=== PATIENT | female | born 1950 | race Caucasian/White ===

== ENCOUNTER 2017-09-27 05:51 | Inpatient (IN) | payer MEDICARE ==
--- NOTE | 2017-09-14 16:49 | HP ---
AMENDED REPORT NOW INCLUDES COSIGNER DESIGNATION - ESIGNED BEFORE ADJUSTMENT HISTORY AND PHYSICAL: DATE OF ADMISSION/SURGERY: 09/27/17 DATE OF OFFICE VISIT: 09/14/17 SURGEON: Ernestine Estrada MD * (DICTATED BY ABHIJIT CHILDS) PROCEDURE: Left total hip arthroplasty. CHIEF COMPLAINT: Left hip pain. HISTORY OF PRESENT ILLNESS: Ms. Aldridge is a 66-year-old female with continued complaints of left hip pain secondary to advanced osteoarthritis. She has failed conservative management and elected to proceed with a left total hip arthroplasty, which is scheduled for 09/27/[address] Estrada. PAST MEDICAL HISTORY: Hypertension, anxiety, osteoarthritis, and hemifacial ___ __. PAST SURGICAL HISTORY: Tubal ligation, bunionectomy, D and C, right total hip arthroplasty, hernia repair. CURRENT MEDICATIONS: 1. Metoprolol 25 mg daily. 2. Cymbalta 30 mg daily. 3. Vitamin D. 4. Calcium. 5. Magnesium. 6. Zinc. 7. Potassium. 8. Vitamin C. 9. Percocet. ALLERGIES: None. FAMILY HISTORY: Of colon cancer and osteoporosis. SOCIAL HISTORY: She is a 66-year-old female, she lives with her . She does not smoke, use drugs, or alcohol. REVIEW OF SYSTEMS: A complete 14-point review of systems was reviewed with the patient, was all negative or noncontributory. PHYSICAL EXAMINATION GENERAL: She is well developed, well nourished, in no acute distress. VITAL SIGNS: She stands 5 feet 5 inches tall, weighs 175 pounds. Her blood pressure 142/92 and her heart rate is 88. HEENT: Normocephalic, atraumatic. NECK: Supple. No palpable lymph nodes. PULMONARY: Lungs are clear to auscultation bilaterally. CARDIO: Regular rate and rhythm. Strong S1, S2. ABDOMEN: Soft, nontender, nondistended. NEUROLOGICAL: Alert and oriented x3. Cranial nerves II through XII are intact. MUSCULOSKELETAL: Left lower extremity, the skin is intact. There are no open wounds or abrasions. She walks with an antalgic gait. She has decreased internal and external rotation of the left hip. She has 2+ dorsalis pedis pulses, intact sensation, and her lower extremity muscle group strengths are intact at 5/5. ASSESSMENT AND PLAN: Ms. Aldridge is a 66-year-old female with severe left hip pain secondary to advanced osteoarthritis. She has failed conservative management and has elected to proceed with a left total hip arthroplasty, which is scheduled for 09/27/17, with Dr. Estrada. Dr. Estrada discussed the risks and benefits of the surgery at today's visit and all of her questions were answered. Coumadin and Colace were sent to her pharmacy for postoperative DVT prophylaxis. She currently has prescription for Percocet. She will follow up with Dr. Estrada in 2 weeks after the surgery. ABHIJIT CHILDS [id number]/CPS #: [id number] MTDD
[~2017-09-27 05:51] MED LIST: Acetaminophen IV 1GM/100ML * 1,000 MG/100 ML VIAL IVPB ONE; Buffered Lidocaine 0.9% SYRIN* 5 ML/SYR SYRINGE INTRADERM ONE; Gabapentin CAP(*) 300 MG PO ONE
[2017-09-27] MEDS ORDERED: Famotidine IV* 10 MG/ML 2 ML (20 mg) IV ONE (06:00)
[2017-09-27] MEDS ORDERED: Dexamethasone IV* 4 MG/ML 1 ML (4 MG) IV SLOW PU ONE (06:00)
--- OUTSIDE RECORDS SUMMARY | 2017-09-27 06:00 | XMS REPORT ---
:1950 External Reference #:[id number] Author Organization [facility] Address [address] [address] Phone [phone] Care Team Providers Name Role Phone Aguilar Bermudez MD Primary Care Physician Unavailable Payers Type Date Identification Numbers Payment Provider Subscriber Health Maintenance Policy Number: Medicare Blue o Donna Bocanegra (O) [id number] PayID: [id number] [address] [address] [place] [address] Medigap Part B Effective: 08/20/2013 Policy Number: BS Asael Aldridge [id number] Expires: 08/19/2017 PayID: [id number] [address] [address] [place] [address] Medigap Part B Expires: 08/19/2013 Policy Number: BS Asael Aldridge [id number] PayID: [id number] [address] [address] [place] [address] Problems Date Description Provider Status Onset: 09/03/2017 Localized, primary osteoarthritis of the Ernestine Estrada M.D. 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 hours as needed for pain Metoprolol / Active 25mg one daily Unknown Succinate ER 0000 Amoxicillin / Active Tablets 500mg 4 tabs by Unknown 0000 mouth 1 hour prior to dental procedures . Cymbalta / Active Caps DR 25mg 1 by mouth Unknown 0000 Part every day Vitamin D 00/ Active Unknown 0000 Calcium / Active Tablets 300-300mg Unknown Magnesium Zinc 0000 Potassium / Active Unknown 0000 Oxycodone-Acet 01/07/ Hx Tablets 5-325mg 40tabs take 1 tab Kang aminophen 2014 - PO tid as Hannah, 09/02/ needed M.D. 2017 Dilaudid 03/17/ Hx Tablets 2mg 50tabs take 1-2 Kang 2012 - tablet po Hannah, 04/09/ q 4-6 hr M.D. 2012 prn pain Bactrim DS 02/27/ Hx Tablets 800-160mg 14tabs 1 po bid Kang 2012 - for 7 days Hannah, 02/24/ M.D. 2013 Coumadin 02/26/ Hx Tablets 2.5mg 90tabs take 1-3 Kang 2012 - as Hannah, 02/24/ directed M.D. 2013 at 5pm daily Percocet 02/26/ Hx Tablets 5-325mg 50tabs 1-2 tabs Kang 2012 - po bid prn Hannah, 02/24/ pain M.D. 2013 Docusate / Hx Capsules 100mg 60caps 1 by mouth Kang Sodium 0000 - twice a Hannah, 09/02/ day as M.D. 2018 needed Sertraline HCL / Hx Tablets 50mg 1/2 tab by Unknown 0000 - mouth 09/02/ every day 2018 Vital Signs Date Vital Result Comment 09/03/2017 Height 64.5 inches 5'4.50" Weight 174.00 lb Heart Rate 88 /min BP Systolic 142 mmHg BP Diastolic 92 mmHg BMI (Body Mass Index) 29.4 kg/m2 02/05/2015 Height 64 inches 5'4" Weight 170.00 lb Pain Level 2 BMI (Body Mass Index) 29.2 kg/m2 01/22/2015 Height 64 inches 5'4" Weight 170.00 lb Pain Level 6 at end of day after working all day BMI (Body Mass Index) 29.2 kg/m2 01/12/2015 Height 64 inches 5'4" Weight 170.00 lb Heart Rate 75 /min BP Systolic Sitting 149 mmHg BP Diastolic Sitting 97 mmHg Pain Level 6 various depending on movement BMI (Body Mass Index) 29.2 kg/m2 02/25/2014 Height 64 inches 5'4" Heart Rate 78 /min BP Systolic 128 mmHg BP Diastolic 97 mmHg Results Test Date Test Result H/L Range Note Laboratory test finding 03/24/2013 Inr 1.85 High 0.87-0.97 Urinalysis 02/26/2013 Urine Color Yellow Urine Appearance Cloudy Urine Specific [place] 1.022 1.010-1.030 Urine Esterase Trace Negative Urine Nitrate Negative Negative Urine Urobilinogen Negative E.U./dL Negative Urine Protein Negative mg/dL Negative Urine pH 7.0 5-9 Urine Blood Negative Negative Urine Ketones Negative mg/dL Negative Urine Bilirubin Negative Negative Urine Glucose Negative mg/dL Negative Urine Microscopic 02/26/2013 Urine WBC 1+ (<10 /hpf) None Seen Urine Mucus Present /lpf Absent Urine Epithelial Cells 1+ Urothelial /hpf None Seen Bacteria Urine 2+ None Seen Crystals Urine Amorphous /lpf None Seen Type & Screen 02/26/2013 Patient Blood Type A Positive Antibody Screen NEGATIVE Procedures Date CPT Code Description Status 01/12/2015 65572 Closed Treatment Radial Head Or Neck FX W/O Completed Manipulation 02/25/2014 98574 Rad Exam; Hip Unilat Completed 04/09/2013 87005 Rad Exam; Hip Unilat Completed 04/09/2013 18020 Rad Exam; Pelvis Completed 03/10/2013 37430 THR Total Hip Replacement Completed 03/10/2013 53486 THR Total Hip Replacement Completed Encounters Type Date Location Provider CPT E/M Dx Office Visit 09/03/2017 [facility] Ernestine Estrada M.D. 62109 M25.552 2:00p [facility] M16.12 Office Visit 01/12/2015 2:00p [facility] 57874 813.06 Maryana Teresa 873.42 V58.32 Office Visit 02/25/2014 10:45a [facility] M.D. 21646 715.95 Of CDionisio Office Visit 02/26/2013 1:00p [facility] [place] Quinn 67977 715.95 Of [facility].AMarvin Witt Office Visit 01/15/2013 1:00p [facility] M.D. 97936 715.95 [facility] Plan of Care Future Appointment(s):09/27/2017 2:30 pm - Ernestine Estrada M.D. at [facility]09/14/2017 9:45 am - Ernestine Estrada M.D. at [facility]09/03/2017 - Ernestine Estrada M.D.M25.552 Pain in left hipNew Medication:Oxycodone-Acetaminophen 5-325 mgNew Xrays:Hip Left 2 Views And Pelvis 38355 - 39880Cunoih up:Follow up: 7-10 days before rzrpcqgZ44.12 Unilateral primary osteoarthritis, left hip
--- OUTSIDE RECORDS SUMMARY | 2017-09-27 06:00 | XMS REPORT ---
:1950 External Reference #:[id number] Author Organization [facility] Address [address] [address] Phone [phone] Care Team Providers Name Role Phone Aguilar Bermudez MD Primary Care Physician Unavailable Payers Type Date Identification Numbers Payment Provider Subscriber Health Maintenance Policy Number: Medicare Blue Ppo Donna Bocanegra (O) [id number] PayID: [id number] [address] [address] [place] [address] Medigap Part B Effective: 08/20/2013 Policy Number: BS Asael Aldridge [id number] Expires: 08/19/2017 PayID: [id number] [address] [address] [place] [address] Medigap Part B Expires: 08/19/2013 Policy Number: BS Asael Abhay Aldridge [id number] PayID: [id number] [address] [address] [place] [address] Problems Date Description Provider Status Onset: 09/03/2017 Localized, primary osteoarthritis of the Ernestine Brii Estrada Active pelvic region and thigh Family History Date Family Member(s) Problem(s) Comments General Cancer Social History Type Date Description Comments 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 at night as directed Stool 09/14/ Active Capsules 100mg 90caps 1 by mouth Ernestine Softener 2018 2-3 times Sean, daily while M.D. on narcotic pain medication Oxycodone-Johnny 09/03/ Active Tablets 5-325mg 90tabs 1-2 tabs by M25.552 Ernestine taminophen 2018 mouth every Sean, 12 hours as M.D. needed for pain Metoprolol / Active 25mg one daily Unknown Succinate ER 0000 Amoxicillin / Active Tablets 500mg 4 tabs by Unknown 0000 mouth 1 hour prior to dental procedures. Cymbalta / Active Caps DR 25mg 1 by mouth Unknown 0000 Part every day Vitamin D / Active Unknown 0000 Calcium / Active Tablets 300-300mg Unknown Magnesium 0000 Zinc Potassium / Active Unknown 0000 Oxycodone-Johnny 01/07/ Hx Tablets 5-325mg 40tabs take 1 tab Kang felix 2014 - PO tid as Hannah 09/02/ needed M.D. 2018 Dilaudid 03/17/ Hx Tablets 2mg 50tabs take 1-2 Kang 2012 - tablet po q Hannah, 04/09/ 4-6 hr prn M.D. 2012 pain Bactrim DS 02/27/ Hx Tablets 800-160mg 14tabs 1 po bid for Kang 2012 - 7 days Hannah 02/24/ M.D. 2013 Coumadin 02/26/ Hx Tablets 2.5mg 90tabs take 1-3 as Kang 2012 - directed at Hannah, 02/24/ 5pm daily M.D. 2014 Percocet 02/26/ Hx Tablets 5-325mg 50tabs 1-2 tabs po Kang 2012 - bid prn pain Hannah, 02/24/ M.D. 2013 Docusate / Hx Capsules 100mg 60caps 1 by mouth Kang Sodium 0000 - twice a day Hannah 09/02/ as needed M.D. 2018 Sertraline / Hx Tablets 50mg 1/2 tab by Unknown HCL 0000 - mouth every 09/02/ day 2018 Vital Signs Date Vital Result Comment 09/14/2017 Height 64.5 inches 5'4.50" Weight 177.00 lb BP Systolic 132 mmHg BP Diastolic 84 mmHg Respiratory Rate 16 /min Pain Level 6 BMI (Body Mass Index) 29.9 kg/m2 09/03/2017 Height 64.5 inches 5'4.50" Weight 174.00 [...] Color Yellow Urine Appearance Cloudy Urine Specific [place] 1.022 1.010-1.030 Urine Esterase Trace Negative Urine [...] Procedures Date CPT Code Description Status 01/12/2015 85957 Closed Treatment Radial Head Or Neck FX W/O Completed Manipulation 02/25/2014 78199 Rad Exam; Hip Unilat Completed 04/09/2013 54744 Rad Exam; Hip Unilat Completed 04/09/2013 15936 Rad Exam; Pelvis Completed 03/10/2013 01881 THR Total Hip Replacement Completed 03/10/2013 57432 THR Total Hip Replacement Completed Encounters Type Date Location Provider CPT E/M Dx Office Visit 09/03/2017 [facility] Ernestine Estrada M.D. 71121 M25.552 2:00p [facility] M16.12 Office Visit 01/12/2015 2:00p [facility] [place], 51356 813.06 Maryana Teresa 873.42 V58.32 Office Visit 02/25/2014 10:45a [facility] M.D. 82931 715.95 Of Chris.MSaleem Office Visit 02/26/2013 1:00p [facility] [place] 85948 715.95 Of C.MMarvin Martinez Office Visit 01/15/2013 1:00p [facility] M.D. 49318 715.95 Of C.MSaleem Plan of Care Future Appointment(s):10/10/2017 11:00 am - ABHIJIT Barron at [facility]09/27/2017 12:00 pm - Ernestine Estrada M.D. at [facility]09/14/2017 - Ernestine Estrada M.D.M25.552 Pain in left hipFollow up:Follow up: 2 weeks after qyaqrcnC25.12 Unilateral primary osteoarthritis, left hip
[2017-09-27] MEDS ORDERED: Acetaminophen IV 1GM/100ML * 100 ML ONE (06:10)
[2017-09-27] MEDS ORDERED: Gabapentin CAP(*) 300 MG ONE (06:11)
[2017-09-27] MEDS ORDERED: Famotidine IV* 10 MG/ML 2 ML (20 mg) ONE (06:11)
[2017-09-27] MEDS ORDERED: Dexamethasone IV* 4 MG/ML 1 ML (4 MG) ONE (06:11)
[2017-09-27] MEDS ORDERED: ceFAZolin 2 GM PREMIX (*) 2 GM/50 ML BAG IVPB ONE (06:11)
[2017-09-27] MEDS ORDERED: Phenylephrine INJ* 10 MG/ML 1 ML VIAL (10 MG) ONE (07:18)
[2017-09-27] MEDS ORDERED: Ondansetron INJ* 2 MG/ML VIAL ONE (07:23)
[2017-09-27] MEDS ORDERED: Propofol* 10 MG/ML 20 ML BTL IV PUSH ONE (07:23)
[2017-09-27] MEDS ORDERED: Midazolam* 1 MG/ML 10 ML VIAL (10 MG) ONE (07:23)
[2017-09-27] MEDS ORDERED: EPHEDrine (Pressors)* 50 MG/ML VIAL ONE (07:23)
[2017-09-27] MEDS ORDERED: KETAMINE HCL* 50 MG/ML 10 ML VIAL ONE (07:24)
[2017-09-27] MEDS ORDERED: Bupivacaine 0.5% SDV PF* 10-30ML VIAL ONE (07:31)
[2017-09-27] MEDS ORDERED: fentaNYL* 50 MCG/ML 2 ML VIAL (100 MCG VIAL) ONE ×3 (07:50→10:43)
[2017-09-27] MEDS ORDERED: Ketorolac INJ* 30 MG/ML 1 ML VIAL ONE (08:16)
[2017-09-27] MEDS ORDERED: Ondansetron INJ* 2 MG/ML VIAL IV PRN ×2 (08:21→09:11)
[2017-09-27] MEDS ORDERED: Naloxone* 0.4 MG/ML 1 ML VIAL IV PRN (08:21)
[2017-09-27] MEDS ORDERED: DiMENhydriNATE IV* 50 MG/ML VIAL IV PUSH PRN (08:21)
[2017-09-27] MEDS ORDERED: oxyCODONE/Acetamin 5/325 MG* TAB PO PRN (09:11)
[2017-09-27] MEDS ORDERED: Cyclobenzaprine TAB* 10 MG PO PRN (09:11)
[2017-09-27] MEDS ORDERED: Ondansetron TAB* 4 MG PO PRN (09:11)
[2017-09-27] MEDS ORDERED: diPHENhydraMINE IV* 50 MG/ML 1 ml VIAL (BENADRYL) IV PRN (09:11)
[2017-09-27] MEDS ORDERED: Bisacodyl SUPP* 10 MG SUPP PR PRN (09:11)
[2017-09-27] MEDS ORDERED: Polyethylene Glycol 3350* 17 GM PACKET PO PRN (09:11)
[2017-09-27] MEDS ORDERED: Magnesium Hydroxide LIQ* 30 ML UDC PO PRN (09:11)
[2017-09-27] MEDS ORDERED: Acetaminophen TAB* 325 MG PO PRN (09:11)
--- NOTE | 2017-09-27 09:42 | RAD ---
Indication: LEFT total hip replacement. Comparison: September 03, 2017 Technique: Crosstable lateral RIGHT lateral decubitus AP pelvis and LEFT hip Report: Prosthetic LEFT acetabular component in place. Prosthetic LEFT femur test fit/reamer device in place. No fracture evident. Surrounding soft tissue edema and gas. Pre-existing RIGHT total hip prosthesis noted. IMPRESSION: Intraoperative control film for LEFT hip replacement.
[2017-09-27] MEDS ORDERED: HYDROmorphone INJ* 2 MG/ML CARPUJECT SYRINGE ONE (10:30)
[2017-09-27] MEDS: fentaNYL* 50 MCG/ML 2 ML VIAL (100 MCG VIAL) IV PRN ×4 (10:31→11:03)
[2017-09-27] MEDS: HYDROmorphone INJ* 1 MG/ML CARPUJECT SYRINGE IV PRN ×5 (10:33→11:27)
[2017-09-27] MEDS ORDERED: oxyCODONE TAB* 5 MG TAB ONE (11:55)
[2017-09-27] MEDS ORDERED: Cyclobenzaprine TAB* 10 MG ONE (11:55)
[2017-09-27] MEDS: oxyCODONE TAB* 5 MG TAB PO PRN ×2 (11:57→16:40)
[2017-09-27] MEDS: Morphine INJ* 2 MG/ML 1 ML CARPUJECT IV PRN ×2 (12:26→18:08)
--- NOTE | 2017-09-27 12:35 | RAD ---
INDICATION: Status post total left hip replacement surgery. COMPARISON: Comparison is made with a prior intraoperative exam of the same date. TECHNIQUE: An AP view of the pelvis and AP and lateral films of the left hip were obtained. FINDINGS: The patient is status post total left hip replacement surgery. The bones and prostheses are in normal alignment. There is a small amount of air within the lateral soft tissues consistent with the patient's surgery. The patient is also status post remote total right hip replacement surgery. IMPRESSION: STATUS POST TOTAL LEFT HIP REPLACEMENT SURGERY. CPT II Codes: 6045F
[2017-09-27] MEDS: ceFAZolin 1 GM in Dextrose (*) 1 GM/50 ML BAG IVPB SCH (16:05)
[2017-09-27] MEDS ORDERED: Warfarin TAB(*) 6 MG PO ONE (17:00)
--- NOTE | 2017-09-27 20:51 | CONS ---
[facility] MEDICINE CONSULTATION REPORT: DATE OF CONSULT: 09/27/17 ATTENDING PHYSICIAN: Ernestine Estrada MD CONSULTING PHYSICIAN: Suzanne Ann MD REASON FOR CONSULT: Hypertension. HISTORY OF PRESENT ILLNESS: Ms. Aldridge is a 66-year-old female with continued complaints of left hip pain secondary to advanced osteoarthritis. She failed conservative management as an outpatient and elected to proceed with a left total hip arthroplasty, which she had completed today by Dr. Estrada. We were asked to consult due to her hypertension. PAST MEDICAL HISTORY: 1. Hypertension. 2. Anxiety. 3. Osteoarthritis. PAST SURGICAL HISTORY: 1. Tubal ligation. 2. D and C. 3. Hernia repair. 4. Right total hip arthroplasty. CURRENT MEDICATIONS: 1. Metoprolol 25 mg p.o. daily. 2. Cymbalta 30 mg daily. 3. Vitamin D. 4. Calcium. 5. Magnesium. 6. Zinc. 7. Potassium. 8. Vitamin C. 9. Percocet. ALLERGIES: She has an allergy to; 1. SULFA ANTIBIOTICS. 2. MORPHINE. 3. GADOLINIUM. 4. IODINATED DIAGNOSTIC AGENTS. FAMILY HISTORY: Mother with a history of colon cancer and osteoporosis and macular degeneration. Father with a history of hypertension. SOCIAL HISTORY: The patient is a 66-year-old female who lives with her . She does not smoke, does not use drugs or alcohol. Surrogate decision maker is her , Abhay, his phone number is [phone]. REVIEW OF SYSTEMS: General: She has no fevers, chills, or unintended weight loss. Cardiac: No chest pain or edema. Respiratory: No cough or congestion. No shortness of breath. GI: Denies nausea, vomiting, or diarrhea. : Denies any gross hematuria or dysuria. Neuro: Denies any focal weaknesses or sensory loss. Eyes: No visual complaints. ENT: No dysphagia. Musculoskeletal : No arthralgias or myalgias. Skin: No rashes or lesions. Psych: Denies any depression or anxiety at this time. PHYSICAL EXAM: Vital Signs: Temperature 96.8, pulse 77, respirations are 16, O2 saturation is 100% on 3 L nasal cannula, blood pressure was 115/68. General : Ms. Aldridge is lying in bed. She complains of left hip incisional pain with stinging. Neuro: She is alert and oriented x3. She is able to move all extremities. There is no focal neuro deficits. HEENT: Extraocular movements are intact. Heart: S1, S2. No murmurs, rubs, or gallops. She is in regular rhythm. Lungs: Clear to auscultation bilaterally. No accessory muscle use. There is good aeration. There is no wheezes or rhonchi. Abdomen: Soft and nontender. Bowel sounds are positive x4. Extremities: She is able to move all extremities. There is no cyanosis or edema. Pedal pulses are +2 bilaterally. Skin: She has a dressing that is dry and intact to her left hip. LABORATORY DATA: Preoperatively. IMPRESSION AND PLAN: Ms. Aldridge is a 66-year-old female with medical history consistent for hypertension, anxiety, and osteoarthritis who presented to the hospital today for a planned left total hip arthroplasty. In the immediate postoperative period, she has complaints of mild left hip pain and stinging at the incision. We were asked to consult due to her hypertension. Our recommendation is as follows; 1. Status post left total hip arthroplasty, management per Orthopedics. 2. Anxiety. Continue her Cymbalta 30 mg p.o. daily and supportive care. 3. Hypertension. We will continue on her metoprolol 25 mg p.o. daily with hold parameters for heart rate less than 60 or blood pressure less than 110. DVT prophylaxis per Orthopedics. 4. Code status. She is a full code. TIME SPENT: Approximately 45 minutes was spent on this consultation of this patient, more than half of the time was spent with the patient at the bedside reviewing the events leading thus far to her hospitalization, performing physical exam, and reviewing my plan of care. Thank you for this consultation. We will sign off at this point and follow up as needed. AMRIT WOLF, SVETA [id number]/CPS #: [id number] MIRANDA
[2017-09-27] MEDS ORDERED: Metoprolol Succinate XL TAB* 25 MG PO SCH (21:00)
[2017-09-27] MEDS: Metoprolol Succinate XL TAB* 25 MG PO SCH (21:09)
[2017-09-27] MEDS: oxyCODONE/Acetamin 5/325 MG* TAB PO PRN (21:17)
[2017-09-27] MEDS: Docusate CAP* 100 MG PO SCH (21:17)
[2017-09-27] MEDS: Magnesium Hydroxide LIQ* 30 ML UDC PO SCH (21:17)
[2017-09-28] MEDS: ceFAZolin 1 GM in Dextrose (*) 1 GM/50 ML BAG IVPB SCH ×2 (00:58→08:27)
[2017-09-28] MEDS: oxyCODONE/Acetamin 5/325 MG* TAB PO PRN ×2 (05:59→10:04)
[2017-09-28 06:12] LABS: Hematocrit 26 % (35-47); Mean Platelet Volume 7 um3 (7.4-10.4); Platelet Count 314 10^3/ul (150-450)
[2017-09-28 06:23] LABS: INR 1.25 (0.77-1.02)
[2017-09-28 06:32] LABS: EGFR Non-African American 126.7 (>60)
[2017-09-28] MEDS: DULoxetine DR CAP* 30 MG CAP.DR PO SCH (08:27)
[2017-09-28] MEDS: Docusate CAP* 100 MG PO SCH ×2 (08:27→22:03)
[2017-09-28] MEDS: oxyCODONE TAB* 5 MG TAB PO PRN ×3 (08:27→16:44)
[2017-09-28] MEDS: Magnesium Hydroxide LIQ* 30 ML UDC PO SCH ×2 (08:27→22:03)
--- NOTE | 2017-09-28 08:51 | PN ---
Progress Note - Progress Note Date of Service: 09/28/17 SOAP: Subjective: 66 y/o female s/p L SOTERO by Dr. Estrada, 09/27/2017. C/O increased pain, not controlled by pain meds. Tearful. Denies SOB, chest pain VSS, afebrile overnight. Objective: General- Well appearing, NAD, AO MSK- Dressing intact, no induration, erythema noted, + DF/PF, PT 2+, neg homans SITLT b/l les Vital Signs Temp 98.9 F 09/28/17 08:25 Pulse 87 09/28/17 08:25 Resp 16 09/28/17 08:27 BP 96/43 09/28/17 08:25 Pulse Ox 94 09/28/17 08:25 Intake & Output 09/27/17 09/28/17 09/28/17 18:59 06:59 18:59 Intake Total 2741 2065 Output Total 675 850 Balance 2066 1215 Intake: IV Fluids 2000 775 ABX - CEFAZOLIN 60 LR 2000 715 IVPB 271 LR 271 Oral 470 1290 Output: Gal[place] 675 850 Other: # Bowel Movements 0 0 Assessment: Stable 66 y/o female s/p L SOTERO by Dr. Figueroa, 09/27/2017. Plan: - DVT prophylaxis- lovenox, coumadin. 6mg coumadin tonight. - Continue PT/ OT - Follow up with Dr. Estrada 10-14 days - Possible rehab placement Active Medications Generic Name Dose Route Start Last Admin Trade Name Freq PRN Reason Stop Dose Admin Acetaminophen 650 mg 09/27/17 09:11 Tylenol Tab* PO Q4H PRN PAIN OR TEMPERATURE Bisacodyl 10 mg 09/27/17 09:11 Dulcolax Supp* NC DAILY PRN constipation Cyclobenzaprine HCl 10 mg 09/27/17 09:11 09/27/17 11:56 Flexeril Tab* PO 10 mg TID PRN Administration SPASMS Diphenhydramine HCl 12.5 mg 09/27/17 09:11 Benadryl Iv* IV Q6H PRN PRURITIS Docusate Sodium 100 mg 09/27/17 21:00 09/28/17 08:27 Colace Cap* PO 100 mg BID SUZANNE Administration Duloxetine HCl 30 mg 09/28/17 09:00 09/28/17 08:27 Cymbalta Cap* PO 30 mg QAM SUZANNE Administration Enoxaparin Sodium 30 mg 09/28/17 12:00 Lovenox(*) SUBCUT Q24H SUZANNE Lactated Ringer's 1,000 mls @ 100 mls/hr 09/27/17 10:00 09/27/17 23:30 Lactated Ringers 1000 Ml Bag* IV 100 mls/hr PER RATE SUZANNE Administration Lactulose 30 ml 09/27/17 09:11 Lactulose* PO Q6H PRN constipation Magnesium Hydroxide 30 ml 09/27/17 21:00 09/28/17 08:27 Milk Of Magnesia Liq* PO 30 ml BID SUZANNE Administration Magnesium Hydroxide 30 ml 09/27/17 09:11 Milk Of Magnesia Liq* PO Q6H PRN constipation Metoprolol Succinate 25 mg 09/27/17 21:00 09/27/17 21:09 Toprol Xl Tab* PO Not Given BEDTIME SUZANNE Morphine Sulfate 2 mg 09/27/17 09:11 09/27/17 18:08 Morphine Inj (Syringe)* IV 2 mg Q2H PRN Administration PAIN Ondansetron HCl 4 mg 09/27/17 09:11 Zofran Inj* IV Q6H PRN nausea Ondansetron HCl 4 mg 09/27/17 09:11 Zofran Tab* PO Q6H PRN NAUSEA Oxycodone HCl 10 mg 09/27/17 09:11 09/28/17 08:27 Roxycodone Tab* PO 10 mg Q4H PRN Administration SEVERE PAIN Oxycodone/Acetaminophen 2 tab 09/27/17 09:11 09/28/17 05:59 Percocet 5/325 Tab* PO 2 tab Q4H PRN Administration PAIN Oxycodone/Acetaminophen 1 tab 09/27/17 09:11 Percocet 5/325 Tab* PO Q4H PRN PAIN Pharmacy Profile Note 1 note 09/27/17 17:00 09/27/17 16:07 Coumadin Daily Reminder* FOLLOW UP 1 note 1700 SUZANNE Administration Polyethylene Glycol/Electrolytes 17 gm 09/27/17 09:11 Miralax* PO DAILY PRN Constipation Warfarin Sodium 4 mg 09/28/17 17:00 Coumadin Tab(*) PO 09/28/17 17:01 ONCE@1700 ONE Protocol
[2017-09-28] MEDS ORDERED: Acetaminophen TAB* 325 MG PO SCH (11:00)
[2017-09-28] MEDS ORDERED: Enoxaparin(*) 30 MG/0.3 ML SYR SUBCUT SCH (12:00)
[2017-09-28] MEDS: Acetaminophen TAB* 325 MG PO SCH ×2 (12:18→20:17)
[2017-09-28] MEDS: oxyCODONE SR TAB(*) 10 MG TAB.SR PO SCH ×2 (12:19→22:02)
--- NOTE | 2017-09-28 13:47 | OP ---
OPERATIVE REPORT: DATE OF OPERATION: 09/27/17 DATE OF : 52 SURGEON: Ernestine Estrada MD WIREWORKER SUPERVISOR: ABHIJIT Hardy Mr. Ewing did help throughout the procedure with preparation of the leg, wound retraction, manipulat ion of the hip, and wound closure. ANESTHESIOLOGIST: Dr. Castro. ANESTHESIA: Spinal. PRE-OP DIAGNOSIS: Severe end-stage degenerative osteoarthritis of the left hip joint. POST-OP DIAGNOSIS: Severe end-stage degenerative osteoarthritis of the left hip joint. OPERATIVE PROCEDURE: Left total hip arthroplasty. HARDWARE USED: Ramiro uncemented total hip arthroplasty hardware. For the cup, a Trident 52E hemis pherical shell. For the stem, an Accolade TMZF size 3 with a 132- degree neck angle. For the liner, a Trident X3 0-degree polyethylene insert 36E and for the head, a Biolox delta ceramic V40 femoral h ead 36 +0. COMPLICATIONS: None. ESTIMATED BLOOD LOSS: 350 cc. SPECIMEN: Femoral head and acetabular reaming sent to Pathology. BRIEF HISTORY/INDICATION: Ms. Aldridge is a 66-year-old female with years of increasingly severe left hip pain. She failed conservative treatment with anti- inflammatories, pain medications, ambulatory assistive devices and physical therapy. Her x-rays showed [id number] arthritis. She elected to u ndergo a left total hip arthroplasty due to continued pain and decreased quality of life. Informed co nsent was obtained from the patient. She understood the risks of surgery included, but were not limi nayely to, bleeding, infection, damage to nearby structures, continued pain, need for further surgery, i ntraoperative fracture, nerve palsy, hardware failure or loosening, dislocation, leg length discrepan cy, stroke, heart attack, blood clot, and . She wished to proceed. INTRAOPERATIVE FINDINGS: Intraoperatively, the patient was noted to have severe end-stage arthritis with complete loss of cartilage along the femoral head and acetabulum. Significant inferior osteophy te formation around the acetabulum. DESCRIPTION OF PROCEDURE: Ms. Aldridge is a 66-year-old female who was identified in the preanesthesi a unit. Her left lower extremity was marked as the correct operative side. Informed consent was sig ani and placed in the chart. The patient was taken to the operating room and placed under spinal ane sthesia. A Galvan catheter was placed. The patient was placed in the right lateral decubitus positio n on the peg board. All bony prominences were well padded. The left lower extremity was prepped and draped in the usual sterile fashion. Preop time-out was made to correctly identify the patient's si de and site. Appropriate perioperative antibiotics were given within 1 hour of incision. A 12-cm posterior hip incision was made with a 10 blade and carried down to the lateral fascial layer . The lateral fascial layer was incised in line with a skin incision. A Charnley retractor was plac ed. The piriformis and conjoint tendons were elevated off the posterolateral femur and tagged with # 5 Ethibonds. Electrocautery was then used to make a standard posterolateral capsular flap without medina ctrocautery and this was also tagged with #5 Ethibonds. The hip was carefully dislocated. The lesse r troch to center of the femoral head measured 55 mm. Oscillating saw was used to make the appropria te femoral neck cut. The femur was carefully removed. The femur was retracted anteriorly. After appropriate placement of retractors, the acetabulum was we ll visualized. Long-handled knife was used to sharply remove any remaining labrum from the acetabula r rim. The acetabulum was sequentially reamed up to a size 51. Good bleeding subchondral bone bed w as obtained. A 51 trial had excellent fit. Some small subchondral cysts were noted and were cleared of any cystic debris. Femoral head and a bone autograft was collected and packed into the cystic re gions. Final implant chosen was a Trident 52E hemispherical shell. This was impacted into the aceta bulum without difficulty. The cup was stable with appropriate anteversion and abduction angle. A Tr ident X3 0-degree liner 36E was chosen. This was impacted into the acetabular cup without difficulty . Stability of the liner was checked and rechecked and noted to be stable. Next, attention was turned to preparation of the femur. A canal finder was used to enter the proxima l femur. The femur was sequentially broached up to a size 3. The size 3 broach had excellent fit an d appropriate anteversion. A 132-degree neck with a 36 +0 head trial was placed. Lesser troch to th e center of the femoral head measured 55 mm. The hip was reduced and taken through a range of motion . The hip was stable in all positions. There was good soft tissue tension and leg length. The hip w as carefully dislocated. All trials were removed. Final implant chosen was an Accolade TMZF size 3 with a 132-degree neck. This was impacted into the femoral canal without difficulty. There was excellent stability and anteversion. A Biolox delta cer amic V40 36 +0 femoral head was chosen. This was impacted on to the femoral neck. The hip was reduced and taken through a range of motion. The hip was stable in all positions. There was appropriate soft tissue tension and leg lengths. The hip was copiously irrigated with sterile s stephania. Previously tagged capsule and tendons were reapproximated to the posterolateral femur through 2 trochanteric drill holes. The lateral fascial layer was closed using interrupted #1 Vicryls. The rest of the incision was closed in a layered fashion using 0 and 2-0 Vicryls. The skin was closed us ing running 3-0 Monocryl and Dermabond. Sterile Adaptic, 4x4s, and paper tape were used to cover the incision. The patient's anesthesia was reversed without difficulty. She was taken to the PACU in stable condition. Intended weightbearing will be weightbearing as tolerated. Intended DVT prophylaxis will be Coumadin with a Lovenox bridge. [id number]/[facility] #: [id number]
[2017-09-28] MEDS ORDERED: Warfarin TAB(*) 4 MG PO ONE (17:00)
[2017-09-28] MEDS: Metoprolol Succinate XL TAB* 25 MG PO SCH (22:03)
[2017-09-29] MEDS: Acetaminophen TAB* 325 MG PO SCH ×3 (03:55→19:51)
[2017-09-29 05:44] LABS: Hematocrit 25 % (35-47); Hemoglobin 8.5 g/dl (12.0-16.0); Mean Platelet Volume 8 um3 (7.4-10.4); Platelet Count 301 10^3/ul (150-450)
[2017-09-29 06:01] LABS: INR 2.29 (0.77-1.02)
[2017-09-29] MEDS: Magnesium Hydroxide LIQ* 30 ML UDC PO SCH ×2 (09:13→19:51)
[2017-09-29] MEDS: oxyCODONE SR TAB(*) 10 MG TAB.SR PO SCH ×2 (09:13→19:52)
[2017-09-29] MEDS: DULoxetine DR CAP* 30 MG CAP.DR PO SCH (09:13)
[2017-09-29] MEDS: Docusate CAP* 100 MG PO SCH ×2 (09:13→19:51)
[2017-09-29 09:44] LABS: Mean Corpuscular HGB Conc 34 g/dl (31-36); Mean Corpuscular Hemoglobin 31 pg (27-31); Mean Corpuscular Volume 92 fL (80-97); Red Blood Count 2.79 10^6/ul (4.0-5.4); Red Cell Distribution Width 14 % (10.5-15)
--- NOTE | 2017-09-29 10:06 | PN ---
Progress Note - Progress Note Date of Service: 09/29/17 SOAP: Subjective: 66 y/o female s/p L SOTERO by Dr. Estrada. Patient feeling better with pain control, would like more pain medication. c/d coughing, congestion. VSS, febrile overnight to 101. Objective: General- Well appearing, NAD, AO MSK- DF/PF 2+ b/l, PT 2+, negative homans sign. Surgical dressing removed, i c/ d/i, mild resolving ecchymosis around incision, mild induration at distal portion, no erythema/ warmth. Vital Signs Temp 99.5 F 09/29/17 07:45 Pulse 79 09/29/17 07:45 Resp 16 09/29/17 09:13 BP 118/58 09/29/17 07:45 Pulse Ox 92 09/29/17 07:45 Intake & Output 09/28/17 09/29/17 09/29/17 18:59 06:59 18:59 Intake Total 2417 690 Output Total 0 Balance 2417 690 Intake: IV Fluids 1647 LR 1647 IVPB 100 ABX - CEFAZOLIN 100 Oral 670 690 Output: Urine 0 Other: Estimated Void Small Medium # Bowel Movements 1 Estimated Stool Amount Medium Medium # Voids 1 Assessment: Stable 66 y/o female s/p L SOTERO by Dr. Estrada Plan: - DVT prophylaxis- lovenox, coumadin 1mg tonight. - Continue PT/ OT - Follow up with Dr. Estrada within 10-14 days - H&H Stable - post-op IV ABX - completed. - Febrile overnight- 101F- CXR due to cough, congestion, UA ordered. - Possible D/c tomorrow Active Medications Generic Name Dose Route Start Last Admin Trade Name Freq PRN Reason Stop Dose Admin Acetaminophen 650 mg 09/28/17 12:00 09/29/17 03:55 Tylenol Tab* PO 650 mg 0400,1200,2000 SUZANNE Administration Bisacodyl 10 mg 09/27/17 09:11 Dulcolax Supp* MA DAILY PRN constipation Cyclobenzaprine HCl 10 mg 09/27/17 09:11 09/27/17 11:56 Flexeril Tab* PO 10 mg TID PRN Administration SPASMS Diphenhydramine HCl 12.5 mg 09/27/17 09:11 Benadryl Iv* IV Q6H PRN PRURITIS Docusate Sodium 100 mg 09/27/17 21:00 09/29/17 09:13 Colace Cap* PO 100 mg BID SUZANNE Administration Duloxetine HCl 30 mg 09/28/17 09:00 09/29/17 09:13 Cymbalta Cap* PO 30 mg QAM SUZANNE Administration Lactated Ringer's 1,000 mls @ 100 mls/hr 09/27/17 10:00 09/28/17 10:04 Lactated Ringers 1000 Ml Bag* IV 100 mls/hr PER RATE SUZANNE Administration Lactulose 30 ml 09/27/17 09:11 Lactulose* PO Q6H PRN constipation Magnesium Hydroxide 30 ml 09/27/17 21:00 09/29/17 09:13 Milk Of Magnesia Liq* PO Not Given BID SUZANNE Magnesium Hydroxide 30 ml 09/27/17 09:11 Milk Of Magnesia Liq* PO Q6H PRN constipation Metoprolol Succinate 25 mg 09/27/17 21:00 09/28/17 22:03 Toprol Xl Tab* PO 25 mg BEDTIME SUZANNE Administration Morphine Sulfate 2 mg 09/27/17 09:11 09/27/17 18:08 Morphine Inj (Syringe)* IV 2 mg Q2H PRN Administration PAIN Ondansetron HCl 4 mg 09/27/17 09:11 Zofran Inj* IV Q6H PRN nausea Ondansetron HCl 4 mg 09/27/17 09:11 Zofran Tab* PO Q6H PRN NAUSEA Oxycodone HCl 10 mg 09/27/17 09:11 09/28/17 16:44 Roxycodone Tab* PO 10 mg Q4H PRN Administration SEVERE PAIN Oxycodone HCl 10 mg 09/28/17 11:00 09/29/17 09:13 Oxycontin(*) PO 10 mg Q12HR SUZANNE Administration Oxycodone/Acetaminophen 1 tab 09/27/17 09:11 Percocet 5/325 Tab* PO Q4H PRN PAIN Pharmacy Profile Note 1 note 09/27/17 17:00 09/28/17 16:45 Coumadin Daily Reminder* FOLLOW UP 1 note 1700 SUZANNE Administration Polyethylene Glycol/Electrolytes 17 gm 09/27/17 09:11 Miralax* PO DAILY PRN Constipation Warfarin Sodium 1 mg 09/29/17 17:00 Coumadin Tab(*) PO 09/29/17 17:01 ONCE@1700 ONE Protocol
--- NOTE | 2017-09-29 11:26 | RAD ---
INDICATION: Productive cough for 2 days. 3 days postop LEFT hip replacement. COMPARISON: September 14, 2017 TECHNIQUE: Dual energy PA and routine lateral views of the chest were obtained. REPORT: Elevated lung volumes. No pulmonary infiltrate, focal pulmonary lesion, pleural effusion, pneumothorax. The heart, pulmonary vasculature, and mediastinal contours are unremarkable. Diffuse thoracic degenerative spondylosis. IMPRESSION: Stigmata of potential obstructive lung disease. No acute pulmonary or cardiac process evident.
[2017-09-29] MEDS: oxyCODONE TAB* 5 MG TAB PO PRN (12:05)
--- NOTE | 2017-09-29 13:31 | PN ---
Subjective Date of Service: 09/29/17 Interval History: Pt c/o a lot of productive cough in am, now resolved. Fever at 101 las night Objective Active Medications: Acetaminophen (Tylenol Tab*) 650 mg PO 0400,1200,2000 [facility] Last Admin: 09/29/17 12:04 Dose: 650 mg Bisacodyl (Dulcolax Supp*) 10 mg [place] DAILY PRN PRN Reason: constipation Cyclobenzaprine HCl (Flexeril Tab*) 10 mg PO TID PRN PRN Reason: SPASMS Last Admin: 09/27/17 11:56 Dose: 10 mg Diphenhydramine HCl (Benadryl Iv*) 12.5 mg IV Q6H PRN PRN Reason: PRURITIS Docusate Sodium (Colace Cap*) 100 mg PO BID [facility] Last Admin: 09/29/17 09:13 Dose: 100 mg Duloxetine HCl (Cymbalta Cap*) 30 mg PO QAM [facility] Last Admin: 09/29/17 09:13 Dose: 30 mg Lactulose (Lactulose*) 30 ml PO Q6H PRN PRN Reason: constipation Magnesium Hydroxide (Milk Of Magnesia Liq*) 30 ml PO BID [facility] Last Admin: 09/29/17 09:13 Dose: Not Given Magnesium Hydroxide (Milk Of Magnesia Liq*) 30 ml PO Q6H PRN PRN Reason: constipation Metoprolol Succinate (Toprol Xl Tab*) 25 mg PO BEDTIME [facility] Last Admin: 09/28/17 22:03 Dose: 25 mg Morphine Sulfate (Morphine Inj (Syringe)*) 2 mg IV Q2H PRN PRN Reason: PAIN Last Admin: 09/27/17 18:08 Dose: 2 mg Ondansetron HCl (Zofran Inj*) 4 mg IV Q6H PRN PRN Reason: nausea Ondansetron HCl (Zofran Tab*) 4 mg PO Q6H PRN PRN Reason: NAUSEA Oxycodone HCl (Roxycodone Tab*) 10 mg PO Q4H PRN PRN Reason: SEVERE PAIN Last Admin: 09/29/17 12:05 Dose: 10 mg Oxycodone HCl (Oxycontin(*)) 10 mg PO Q12HR [facility] Last Admin: 09/29/17 09:13 Dose: 10 mg Oxycodone/Acetaminophen (Percocet 5/325 Tab*) 1 tab PO Q4H PRN PRN Reason: PAIN Pharmacy Profile Note (Coumadin Daily Reminder*) 1 note FOLLOW UP 1700 SUZANNE Last Admin: 09/28/17 16:45 Dose: 1 note Polyethylene Glycol/Electrolytes (Miralax*) 17 gm PO DAILY PRN PRN Reason: Constipation Vital Signs - 8 hr 09/29/17 09/29/17 09/29/17 07:45 09:13 09:20 Temperature 99.5 F Pulse Rate 79 Respiratory 16 16 16 Rate Blood Pressure 118/58 (mmHg) O2 Sat by Pulse 92 Oximetry 09/29/17 09/29/17 09/29/17 11:55 12:05 12:07 Temperature 99.5 F Pulse Rate 91 Respiratory 16 16 16 Rate Blood Pressure 139/70 (mmHg) O2 Sat by Pulse 96 Oximetry Oxygen Devices in Use Now: None Appearance: 66 yo f in nAD, aAOx3 Eyes: No Scleral Icterus, PERRLA Ears/Nose/Mouth/Throat: NL Teeth, Lips, Gums, Mucous Membranes Moist Neck: NL Appearance and Movements; NL JVP, Trachea Midline Respiratory: Symmetrical Chest Expansion and Respiratory Effort, - - crackles at b/l bases Cardiovascular: NL Sounds; No Murmurs; No JVD, RRR Abdominal: NL Sounds; No Tenderness; No Distention, No Hepatosplenomegaly Lymphatic: No Cervical Adenopathy Extremities: No Clubbing, Cyanosis, - - left thigh edema Skin: No Nodules or Sclerosis, - - left hip post op dressing not removed Neurological: Alert and Oriented x 3, NL Muscle Strength and Tone Result Diagrams: 09/29/17 04:50 09/28/17 05:58 Assess/Plan/Problems-Billing Assessment: 66 yo f with h/o HTH , s/p left hip surgery - Patient Problems (1) History of arthroplasty of left hip Comment: As per Dr. Estrada (2) Postoperative fever Comment: and cough-likely due to atelectasis, educated about incentive spirometry CXR unremarkable (3) HTN (hypertension) Comment: controlled on Toprol (4) DVT prophylaxis Comment: therapeutic on coumadin Status and Disposition: Thank you for consult, will see prn
[2017-09-29] MEDS ORDERED: Warfarin TAB(*) 1 MG PO ONE (17:00)
[2017-09-29 19:39] LABS: Urine Appearance Clear; Urine Blood Negative (Negative); Urine Color Yellow; Urine Ketones 1+ (Negative); Urine Protein Negative (Negative); Urine Specific Gravity 1.009 (1.010-1.030); Urine Urobilinogen Negative (Negative)
[2017-09-29] MEDS: Metoprolol Succinate XL TAB* 25 MG PO SCH (19:53)
[2017-09-30] MEDS: oxyCODONE TAB* 5 MG TAB PO PRN ×2 (04:12→18:07)
[2017-09-30] MEDS: Acetaminophen TAB* 325 MG PO SCH ×3 (04:12→19:24)
[2017-09-30 05:41] LABS: Hematocrit 25 % (35-47); Hemoglobin 8.5 g/dl (12.0-16.0); Mean Platelet Volume 7 um3 (7.4-10.4); Platelet Count 311 10^3/ul (150-450)
[2017-09-30 05:47] LABS: INR 1.75 (0.77-1.02)
[2017-09-30] MEDS ORDERED: guaiFENesin LIQ* 100 MG/5 ML UDC PO PRN (08:19)
[2017-09-30] MEDS: oxyCODONE SR TAB(*) 10 MG TAB.SR PO SCH ×2 (08:54→19:24)
[2017-09-30] MEDS: DULoxetine DR CAP* 30 MG CAP.DR PO SCH (08:54)
[2017-09-30] MEDS: Docusate CAP* 100 MG PO SCH ×2 (08:54→19:24)
[2017-09-30] MEDS: Magnesium Hydroxide LIQ* 30 ML UDC PO SCH ×2 (08:54→19:24)
[2017-09-30] MEDS ORDERED: Azithromycin IV(*) 500 MG in NS 0.9% 250 ML* 250 ML IVPB SCH (12:00)
--- NOTE | 2017-09-30 12:06 | PN ---
Progress Note - Progress Note Date of Service: 09/30/17 SOAP: Subjective: 66 y/o female sp L SOTERO yb Dr. Estrada 09/27. Patient pain controlled, continues to have cough, febrile overnight to 100, spiked in AM to 101.9 despite tylenol in past. VSS, febrile overnight. Objective: General- Well appearing, NAD, AO sitting comfortably in chair MSK-L LE- DF/PF 2+ b/l, PT 2+, negative homans sign, incision c/d/i, no erythema, drainage noted. Assessment: Stable 66 y/o female sp L SOTERO yb Dr. Estrada 09/27. Vital Signs Temp 98.6 F 09/30/17 07:48 Pulse 91 09/30/17 07:48 Resp 16 09/30/17 11:13 BP 116/67 09/30/17 07:48 Pulse Ox 97 09/30/17 08:30 Intake & Output 09/29/17 09/30/17 09/30/17 18:59 06:59 18:59 Intake Total 400 490 200 Output Total 900 800 Balance -500 -310 200 Intake: IV Fluids 0 LR 0 Oral 400 490 200 Output: Urine 900 800 Other: Estimated Void Medium Estimated Stool Amount Medium Plan: - DVT prophylaxis- lovenox, coumadin 2.5mg tonight - Continue PT/ OT - Follow up with Dr. Estrada within 10-14 days post-op - H&H stable - post-op IV ABX - completed - Azithromycin started for resp complaints, continued fever - Blood cultures to be drawn - Possible D/C tomorrow to home Acetaminophen (Tylenol Tab*) 650 mg PO 0400,1200,2000 [facility] Last Admin: 09/30/17 04:12 Dose: 650 mg Azithromycin (Zithromax Tab*) 250 mg PO DAILY@1000 SUZANNE Bisacodyl (Dulcolax Supp*) 10 mg [place] DAILY PRN PRN Reason: constipation Cyclobenzaprine HCl (Flexeril Tab*) 10 mg PO TID PRN PRN Reason: SPASMS Last Admin: 09/27/17 11:56 Dose: 10 mg Diphenhydramine HCl (Benadryl Iv*) 12.5 mg IV Q6H PRN PRN Reason: PRURITIS Docusate Sodium (Colace Cap*) 100 mg PO BID [facility] Last Admin: 09/30/17 08:54 Dose: 100 mg Duloxetine HCl (Cymbalta Cap*) 30 mg PO QAM [facility] Last Admin: 09/30/17 08:54 Dose: 30 mg Guaifenesin (Robitussin*) 5 ml PO Q4H PRN PRN Reason: COUGH Last Admin: 09/30/17 08:55 Dose: 5 ml Azithromycin 500 mg/ Sodium (Chloride) 250 mls @ 250 mls/hr IVPB Q24H [facility] Stop: 09/30/17 23:55 Lactulose (Lactulose*) 30 ml PO Q6H PRN PRN Reason: constipation Magnesium Hydroxide (Milk Of Magnesia Liq*) 30 ml PO BID [facility] Last Admin: 09/30/17 08:54 Dose: 30 ml Magnesium Hydroxide (Milk Of Magnesia Liq*) 30 ml PO Q6H PRN PRN Reason: constipation Metoprolol Succinate (Toprol Xl Tab*) 25 mg PO BEDTIME [facility] Last Admin: 09/29/17 19:53 Dose: Not Given Morphine Sulfate (Morphine Inj (Syringe)*) 2 mg IV Q2H PRN PRN Reason: PAIN Last Admin: 09/27/17 18:08 Dose: 2 mg Ondansetron HCl (Zofran Inj*) 4 mg IV Q6H PRN PRN Reason: nausea Ondansetron HCl (Zofran Tab*) 4 mg PO Q6H PRN PRN Reason: NAUSEA Oxycodone HCl (Roxycodone Tab*) 10 mg PO Q4H PRN PRN Reason: SEVERE PAIN Last Admin: 09/30/17 04:12 Dose: 10 mg Oxycodone HCl (Oxycontin(*)) 10 mg PO Q12HR [facility] Last Admin: 09/30/17 08:54 Dose: 10 mg Oxycodone HCl (Roxycodone Tab*) 5 mg PO Q4H PRN PRN Reason: PAIN - MILD TO MODERATE Pharmacy Profile Note (Coumadin Daily Reminder*) 1 note FOLLOW UP 1700 [facility] Last Admin: 09/29/17 16:49 Dose: 1 note Polyethylene Glycol/Electrolytes (Miralax*) 17 gm PO DAILY PRN PRN Reason: Constipation
[2017-09-30 12:25] LABS: Mean Corpuscular HGB Conc 34 g/dl (31-36); Mean Corpuscular Hemoglobin 31 pg (27-31); Mean Corpuscular Volume 91 fL (80-97); Red Blood Count 2.75 10^6/ul (4.0-5.4); Red Cell Distribution Width 14 % (10.5-15); White Blood Count 6.6 10^3/ul (3.5-10.8)
[2017-09-30 12:50] LABS: Monocytes % 4 % (0-13)
--- NOTE | 2017-09-30 15:59 | PN ---
Subjective Date of Service: 09/30/17 Interval History: Pt had a temp of 101.9 this aM. feels tired and still coughing Objective Active Medications: Acetaminophen (Tylenol Tab*) 650 mg PO 0400,1200,2000 [facility] Last Admin: 09/30/17 12:31 Dose: 650 mg Azithromycin (Zithromax Tab*) 250 mg PO DAILY@1000 SUZANNE Bisacodyl (Dulcolax Supp*) 10 mg ID DAILY PRN PRN Reason: constipation Cyclobenzaprine HCl (Flexeril Tab*) 10 mg PO TID PRN PRN Reason: SPASMS Last Admin: 09/27/17 11:56 Dose: 10 mg Diphenhydramine HCl (Benadryl Iv*) 12.5 mg IV Q6H PRN PRN Reason: PRURITIS Docusate Sodium (Colace Cap*) 100 mg PO BID [facility] Last Admin: 09/30/17 08:54 Dose: 100 mg Duloxetine HCl (Cymbalta Cap*) 30 mg PO QAM [facility] Last Admin: 09/30/17 08:54 Dose: 30 mg Guaifenesin (Robitussin*) 5 ml PO Q4H PRN PRN Reason: COUGH Last Admin: 09/30/17 08:55 Dose: 5 ml Azithromycin 500 mg/ Sodium (Chloride) 250 mls @ 250 mls/hr IVPB Q24H [facility] Stop: 09/30/17 23:55 Last Admin: 09/30/17 13:02 Dose: 250 mls/hr Lactulose (Lactulose*) 30 ml PO Q6H PRN PRN Reason: constipation Magnesium Hydroxide (Milk Of Magnesia Liq*) 30 ml PO BID [facility] Last Admin: 09/30/17 08:54 Dose: 30 ml Magnesium Hydroxide (Milk Of Magnesia Liq*) 30 ml PO Q6H PRN PRN Reason: constipation Metoprolol Succinate (Toprol Xl Tab*) 25 mg PO BEDTIME [facility] Last Admin: 09/29/17 19:53 Dose: Not Given Morphine Sulfate (Morphine Inj (Syringe)*) 2 mg IV Q2H PRN PRN Reason: PAIN Last Admin: 09/27/17 18:08 Dose: 2 mg Ondansetron HCl (Zofran Inj*) 4 mg IV Q6H PRN PRN Reason: nausea Ondansetron HCl (Zofran Tab*) 4 mg PO Q6H PRN PRN Reason: NAUSEA Oxycodone HCl (Roxycodone Tab*) 10 mg PO Q4H PRN PRN Reason: SEVERE PAIN Last Admin: 09/30/17 04:12 Dose: 10 mg Oxycodone HCl (Oxycontin(*)) 10 mg PO Q12HR [facility] Last Admin: 09/30/17 08:54 Dose: 10 mg Oxycodone HCl (Roxycodone Tab*) 5 mg PO Q4H PRN PRN Reason: PAIN - MILD TO MODERATE Pharmacy Profile Note (Coumadin Daily Reminder*) 1 note FOLLOW UP 1700 [facility] Last Admin: 09/29/17 16:49 Dose: 1 note Polyethylene Glycol/Electrolytes (Miralax*) 17 gm PO DAILY PRN PRN Reason: Constipation Warfarin Sodium (Coumadin Tab(*)) 2.5 mg PO ONCE@1700 ONE PRN Reason: Protocol Stop: 09/30/17 17:01 Vital Signs - 8 hr 09/30/17 09/30/17 09/30/17 08:30 08:54 11:13 Temperature Pulse Rate Respiratory 18 18 16 Rate Blood Pressure (mmHg) O2 Sat by Pulse 97 Oximetry 09/30/17 09/30/17 11:30 15:20 Temperature 101.9 F 99.3 F Pulse Rate 100 102 Respiratory 16 18 Rate Blood Pressure 119/71 117/59 (mmHg) O2 Sat by Pulse 94 99 Oximetry Oxygen Devices in Use Now: None Appearance: 66 yo F in NAD, aAOx3 Eyes: No Scleral Icterus, PERRLA Ears/Nose/Mouth/Throat: NL Teeth, Lips, Gums, Mucous Membranes Moist Neck: NL Appearance and Movements; NL JVP, Trachea Midline Respiratory: Symmetrical Chest Expansion and Respiratory Effort, - - coarse at b /l bases Cardiovascular: NL Sounds; No Murmurs; No JVD, RRR Abdominal: NL Sounds; No Tenderness; No Distention, No Hepatosplenomegaly Lymphatic: No Cervical Adenopathy Extremities: No Clubbing, Cyanosis, - - trace left pedal edema. Skin: No Nodules or Sclerosis, - - post op incision not assessed Neurological: Alert and Oriented x 3, NL Muscle Strength and Tone Result Diagrams: 09/30/17 04:56 09/30/17 12:50 Microbiology and Other Data: Microbiology 09/30/17 08:35 Influenza Types A,B Antigen (ANDREW) - Final Nasal Specimen received for Influenza A/B Molecular testing Assess/Plan/Problems-Billing Assessment: 66 yo f with h/o HTH , s/p left hip surgery - Patient Problems (1) History of arthroplasty of left hip Comment: As per Dr. Estrada (2) Postoperative fever Comment: and cough-likely due to atelectasis, but fever continues and pt continues to cough. will start Azithomycin for acute bronchitis. (3) HTN (hypertension) Comment: controlled on Toprol (4) DVT prophylaxis Comment: on coumadin Status and Disposition: Thank you for consult
[2017-09-30] MEDS ORDERED: Warfarin TAB(*) 2.5 MG PO ONE (17:00)
[2017-09-30] MEDS: Metoprolol Succinate XL TAB* 25 MG PO SCH (19:25)
[2017-10-01] MEDS: Acetaminophen TAB* 325 MG PO SCH ×2 (04:08→11:16)
[2017-10-01 05:39] LABS: Hematocrit 25 % (35-47); Hemoglobin 8.3 g/dl (12.0-16.0); Mean Corpuscular HGB Conc 34 g/dl (31-36); Mean Corpuscular Hemoglobin 31 pg (27-31); Mean Corpuscular Volume 90 fL (80-97); Mean Platelet Volume 7 um3 (7.4-10.4); Platelet Count 371 10^3/ul (150-450); Red Blood Count 2.73 10^6/ul (4.0-5.4); Red Cell Distribution Width 14 % (10.5-15); White Blood Count 6.2 10^3/ul (3.5-10.8)
[2017-10-01 05:40] LABS: Mean Platelet Volume 8 um3 (7.4-10.4); Platelet Count 381 10^3/ul (150-450)
[2017-10-01 05:49] LABS: INR 1.7 (0.77-1.02)
[2017-10-01] MEDS: Magnesium Hydroxide LIQ* 30 ML UDC PO SCH (08:23)
[2017-10-01] MEDS: Docusate CAP* 100 MG PO SCH (08:29)
[2017-10-01] MEDS: DULoxetine DR CAP* 30 MG CAP.DR PO SCH (08:29)
[2017-10-01] MEDS: oxyCODONE TAB* 5 MG TAB PO PRN ×2 (08:29→12:52)
[2017-10-01] MEDS: oxyCODONE SR TAB(*) 10 MG TAB.SR PO SCH (08:30)
[2017-10-01] MEDS ORDERED: Azithromycin TAB* 250 MG PO SCH (10:00)
--- NOTE | 2017-10-01 12:03 | PN ---
Progress Note - Progress Note Date of Service: 10/01/17 SOAP: Subjective: []Patient seen at bedside. She feels fatigued and is coughing. She is not experiencing CP, SOB, or chills. Flu swab, UA and chest xray do not demonstrate acute infection. Objective: [] General- Well appearing, NAD. Appearing comfortable in chair. MSK-LLE- DF/PF intact. DP pulse 2+. Dressing changed- incision c/d/i, no erythema or drainage noted. Sensation intact distally. BL LE: Calves supple and nontender without erythema, edema or palpable cords. Vital Signs Temp 98.3 F 10/01/17 07:39 Pulse 88 10/01/17 07:39 Resp 18 10/01/17 11:12 BP 129/67 10/01/17 07:39 Pulse Ox 96 10/01/17 08:01 Intake & Output 09/30/17 10/01/17 10/01/17 18:59 06:59 18:59 Intake Total 1188 500 360 Output Total 1150 1100 Balance 38 -600 360 Intake: IV Fluids 258 ABX - AZITHROMYCIN 258 Oral 930 500 360 Output: Urine 1150 700 Liquid Stool 400 Other: Estimated Void Medium Small Date of Last Bowel 10/01/17 Movement # Bowel Movements 1 1 Estimated Stool Amount Medium Small # Voids 1 Laboratory Last Values WBC 6.2 10^3/ul (3.5-10.8) 10/01/17 04:48 RBC 2.73 10^6/ul (4.0-5.4) L 10/01/17 04:48 Hgb 8.3 g/dl (12.0-16.0) L 10/01/17 04:48 Hct 25 % (35-47) L 10/01/17 04:48 MCV 90 fL (80-97) 10/01/17 04:48 MCH 31 pg (27-31) 10/01/17 04:48 MCHC 34 g/dl (31-36) 10/01/17 04:48 RDW 14 % (10.5-15) 10/01/17 04:48 Plt Count 381 10^3/ul (150-450) 10/01/17 04:48 MPV 8 um3 (7.4-10.4) 10/01/17 04:48 Neut % (Auto) Not Reportable 09/30/17 04:56 Lymph % (Auto) Not Reportable 09/30/17 04:56 [place] % (Auto) Not Reportable 09/30/17 04:56 Eos % (Auto) Not Reportable 09/30/17 04:56 Baso % (Auto) Not Reportable 09/30/17 04:56 Absolute Neuts (auto) Not Reportable 09/30/17 04:56 Absolute Lymphs (auto) Not Reportable 09/30/17 04:56 Absolute Monos (auto) Not Reportable 09/30/17 04:56 Absolute Eos (auto) Not Reportable 09/30/17 04:56 Absolute Basos (auto) Not Reportable 09/30/17 04:56 Absolute Nucleated RBC Not Reportable 09/30/17 04:56 Neutrophils % 80 % (38-83) 09/30/17 04:56 Lymphocytes % 12 % (25-47) L 09/30/17 04:56 Monocytes % 4 % (0-13) 09/30/17 04:56 Eosinophils % 4 % (0-6) 09/30/17 04:56 Basophils % 0 % (0-2) 09/30/17 04:56 Nucleated RBC % Not Reportable 09/30/17 04:56 Abs Neuts (Manual) 5.3 10^3/ul (1.5-7.7) 09/30/17 04:56 Abs Monocytes (Manual) 0.3 10^3/ul (0-0.8) 09/30/17 04:56 Absolute Eos (Manual) 0.3 10^3/ul (0-0.6) 09/30/17 04:56 Abs Basophils (Manual) 0 10^3/ul (0-0.2) 09/30/17 04:56 Normal RBC Morphology Normal (Normal) 09/30/17 04:56 Hem Pathologist Commnt 09/30/17 04:56 INR (Anticoag Therapy) 1.70 (0.77-1.02) H 10/01/17 04:48 Sodium 134 mmol/L (133-145) 09/30/17 12:50 Potassium 3.6 mmol/L (3.5-5.0) 09/30/17 12:50 Chloride 100 mmol/L (101-111) L 09/30/17 12:50 Carbon Dioxide 26 mmol/L (22-32) 09/30/17 12:50 Anion Gap 8 mmol/L (2-11) 09/30/17 12:50 BUN 6 mg/dL (6-24) 09/30/17 12:50 Creatinine 0.38 mg/dL (0.51-0.95) L 09/30/17 12:50 Est GFR ( Amer) 218.6 (>60) 09/30/17 12:50 Est GFR (Non-Af Amer) 170.0 (>60) 09/30/17 12:50 BUN/Creatinine Ratio 15.8 (8-20) 09/30/17 12:50 Glucose 111 mg/dL (70-100) H 09/30/17 12:50 Calcium 8.0 mg/dL (8.6-10.3) L 09/30/17 12:50 Total Bilirubin 0.50 mg/dL (0.2-1.0) 09/30/17 12:50 AST 33 U/L (13-39) 09/30/17 12:50 ALT 23 U/L (7-52) 09/30/17 12:50 Alkaline Phosphatase 51 U/L (34-104) 09/30/17 12:50 Total Protein 6.0 g/dL (6.4-8.9) L 09/30/17 12:50 Albumin 3.3 g/dL (3.2-5.2) 09/30/17 12:50 Globulin 2.7 g/dL (2-4) 09/30/17 12:50 Albumin/Globulin Ratio 1.2 (1-3) 09/30/17 12:50 Urine Color Yellow 09/29/17 15:27 Urine Appearance Clear 09/29/17 15:27 Urine pH 7.0 (5-9) 09/29/17 15:27 Ur Specific [place] 1.009 (1.010-1.030) L 09/29/17 15:27 Urine Protein Negative (Negative) 09/29/17 15:27 Urine Ketones 1+ (Negative) H 09/29/17 15:27 Urine Blood Negative (Negative) 09/29/17 15:27 Urine Nitrate Negative (Negative) 09/29/17 15: Urine Bilirubin Negative (Negative) 09/29/17 15:27 Urine Urobilinogen Negative (Negative) 09/29/17 15:27 Ur Leukocyte Esterase Negative (Negative) 09/29/17 15:27 Urine Glucose Negative (Negative) 09/29/17 15:27 Influenza A (Rapid) Negative (Negative) 09/30/17 08:40 Influenza B (Rapid) Negative (Negative) 09/30/17 08:40 Assessment: []66 y/o female s/p L SOTERO by Dr. Estrada 09/27. Plan: []- PT/OT - Follow up with Dr. Estrada within 10-14 days post-op - Azithromycin day 09/24 for respiratory complaints, continued fever. Discussed with Dr. Ann, patient medically okay for discharge home - WBAT - Coumadin 2 mg daily until INR recheck 10/04
[2017-10-01 12:51] VITALS: BP 122/59
[2017-10-02] MEDS ORDERED: Azithromycin TAB* 250 MG PO SCH (10:00)
--- NOTE | 2017-10-02 11:27 | DS ---
DISCHARGE SUMMARY: DATE OF ADMISSION: 09/27/17 DATE OF DISCHARGE: 10/01/17. PROVIDER AND SURGEON: Ernestine Estrada MD * (DICTATED BY ABHIJIT GIRON) FORM GRADER OPERATOR: ABHIJIT Hardy PRE-OP DIAGNOSIS: Severe end-stage degenerative osteoarthritis of the left hip. OPERATIVE PROCEDURE: Left total hip arthroplasty. HISTORY: Ms. Aldridge is a 66-year-old female with years of increasingly severe left hip pain. She failed conservative treatment with antiinflammatories, pain medication, ambulatory assistive devices, and physical therapy. Her x-ray show [id number] arthritis and she therefore elected to undergo a left total hip arthroplasty due to continued pain and decreased quality of life. HOSPITAL COURSE: Ms. Aldridge was admitted to [facility] on . She underwent a left total hip arthroplasty without complications. She was brought to the PACU to recover briefly in stable condition and then transferred to the short stay surgical unit again in stable condition. On 09/28/17, she was well- appearing, in no acute distress, alert and oriented. Dressing was intact. No induration or erythema noted. Dorsiflexion and plantarflexion intact. Posterior tibial pulse 2+. Negative Homans sign. Sensation intact to light touch in bilateral lower extremities. Postop day 2, her incision was clean, dry, and intact. Mild resolving ecchymosis around incision. Mild induration at distal portion. No erythema or warmth. On 09/29/17, hemoglobin 8.5, hematocrit 25, INR 2.29. She was also seen by the hospitalist service on 09/29/17 due to a productive cough and fever of 101. Hospitalist service felt that the cough and fever are likely due to atelectasis. On 09/30/17, dorsiflexion and plantarflexion intact. 2+ posterior tibial pulse. Negative Homans sign. Incision clean, dry, and intact. No erythema or drainage noted. The patient was started on azithromycin for respiratory complaints and fever, this was possibly atelectasis but also possibly bronchitis. On 10/01/17, the patient was well-appearing, in no acute distress. She was comfortable in her chair. Left lower extremity dorsiflexion and plantarflexion intact. Dorsalis pedis pulse 2+. Dressing changed. Incision clean, dry, and intact. No erythema or drainage noted. Sensation intact distally. Calves were supple and nontender without erythema, edema, or palpable cords. Hemoglobin 8.3, hematocrit 25, INR 1.70. Vital signs on 10/01/17, 99.2 temperature, orally; pulse rate 98; respiratory rate 18; oxygen saturation 96; blood pressure 122/ 59. The patient was deemed to be medically and orthopedically stable for discharge home. MEDICATIONS: 1. Vitamin D one tab p.o. at bedtime. 2. Metoprolol succinate 25 mg p.o. at bedtime. 3. Calcium one tab p.o. q.a.m. 4. Vitamin B Complex one cap p.o. q.a.m. 5. Duloxetine 30 mg p.o. q.a.m. 6. Oxycodone/acetaminophen 5/325 one to two tabs p.o. q. 4 hours p.r.n. 7. Potassium 99 mg p.o. daily. 8. Acetaminophen 650 mg p.o. q. 8 hours p.r.n., not to exceed 4000 mg daily from all sources. 9. Azithromycin 250 mg p.o. daily. The patient has three tabs remaining of her five tabs in total of her five days dose in total. She has received two dosages, one yesterday and one today. 10. Warfarin 2 mg p.o. The patient will take one to three tabs depending on INR drop. 11. Docusate 100 mg p.o. b.i.d. p.r.n. DISCHARGE INSTRUCTIONS: Weightbearing as tolerated. Continue hip precautions. Do not cross your legs. Do not bend greater than 90 degrees. Do not squat. Okay to shower, but no submerging of the wound. Go to the emergency room with shortness of breath. Call the orthopedic office for increased drainage, redness , increased pain or fever. Continue physical therapy and occupational therapy exercises as shown. Visiting home nurse to do wound check and check INRs on Mondays and . Coumadin dosing 2 mg daily until INR is rechecked on . Finish azithromycin as prescribed by hospitalist service one 250 mg tab daily, you have had a dose of this medication on 09/30/17 and 10/01/17, your first home dose will be 10/02 and this will be your third of five tablets. Pain control with Percocet 5/325 mg one to two tabs by mouth every 4 to 6 hours as needed for pain. Max daily dose of 10 tabs per day. Please follow up with Dr. Estrada within 10 to 14 days. ABHIJIT GIRON [id number]/[facility] #: [id number] [facility]
== END 2017-10-01 13:26 | disposition home health service (06) | DRG 470 ==
LOC: AA 05:51 → SSU 09:11
PROVIDERS: ADMIT Orthopaedic Surgery Adult Reconstructive Orthopaedic Surgery; ATTEND Orthopaedic Surgery Adult Reconstructive Orthopaedic Surgery
PROC: 0QU507Z Supplement Left Acetabulum with Autologous Tissue Substitute, Open Approach (ICD-10-PCS; 2017-09-27)
PROC: 0SRB04A Replacement of Left Hip Joint with Ceramic on Polyethylene Synthetic Substitute, Uncemented, Open Approach (ICD-10-PCS; principal; 2017-09-27 07:30)
DX: M16.12 Unilateral primary osteoarthritis, left hip (principal); Z96.641 Presence of right artificial hip joint; F41.9 Anxiety disorder, unspecified; J98.11 Atelectasis; G89.29 Other chronic pain; M25.752 Osteophyte, left hip; M85.652 Other cyst of bone, left thigh; I10 Essential (primary) hypertension; J40 Bronchitis, not specified as acute or chronic; Z98.51 Tubal ligation status; Z80.0 Family history of malignant neoplasm of digestive organs; Z82.62 Family history of osteoporosis; Z88.5 Allergy status to narcotic agent; Z88.2 Allergy status to sulfonamides; Z91.041 Radiographic dye allergy status; Z83.518 Family history of other specified eye disorder; Z82.49 Family history of ischemic heart disease and other diseases of the circulatory system
CPT/HCPCS: 36415; 71046; 80048; 80053; 81003; 85014; 85018; 85025; 85027; 85049; 85060; 85610; 87040; 87070; 87205; 87502; 88304; 88311; 94760; A9270-GY; C1776; J0456; J0690; J1100; J1170; J1650; J1885; J2250; J2270; J2405; J2704; J3010